=== PATIENT | male | born 1960 | race African-American/Black ===

== ENCOUNTER 2019-01-01 11:45 | Emergency (ER) | payer MEDICAID ==
[~2019-01-01] VITALS: Ht 172.7 cm; Wt 59.0 kg
[2019-01-01] MEDS ORDERED: KETOROLAC 60MG/2ML VIAL IM ONE (13:00)
[2019-01-01] MEDS ORDERED: TRAMADOL 50MG TABLET PO ONE (13:00)
[2019-01-01 14:05] VITALS: BP 109/82
== END 2019-01-01 14:21 | disposition home or self-care (01) ==
LOC: ER 12:35
DX: M25.511 Pain in right shoulder (principal)
CPT/HCPCS: 73030; 96372; 99283; J1885

== ENCOUNTER 2019-04-05 23:00 | Emergency (ER) | payer MEDICAID, MEDICARE ==
[~2019-04-05] VITALS: Ht 175.3 cm; Wt 82.0 kg
[2019-04-05 23:13] VITALS: BP 160/95
== END 2019-04-06 00:45 | disposition left against medical advice (07) ==
LOC: ER 23:00
DX: Z53.21 Procedure and treatment not carried out due to patient leaving prior to being seen by health care provider (principal); R51 Headache
CPT/HCPCS: 93005

== ENCOUNTER 2019-05-30 12:20 | Emergency (ER) | payer MEDICARE ==
[~2019-05-30] VITALS: Ht 175.3 cm; Wt 86.0 kg
[2019-05-30] MEDS ORDERED: SODIUM CHLORIDE 0.9% 1,000 ML IV ONE (15:20)
[2019-05-30] MEDS ORDERED: METHYLPREDNISOLONE SOD SUCC 125 MG/2 ML VIAL IV ONE (15:30)
[2019-05-30 16:00] VITALS: BP 101/74
[2019-05-30] MEDS ORDERED: PREDNISONE 20MG TABLET PO ONE (16:00)
== END 2019-05-30 16:32 | disposition home or self-care (01) ==
LOC: ER 12:20
DX: T78.3XXA Angioneurotic edema, initial encounter (principal); T46.4X5A Adverse effect of angiotensin-converting-enzyme inhibitors, initial encounter; Y92.098 Other place in other non-institutional residence as the place of occurrence of the external cause; I10 Essential (primary) hypertension
CPT/HCPCS: 99283; J2930; J7030; J7512

== ENCOUNTER 2020-01-23 10:43 | Emergency (ER) | payer MEDICARE | END 2020-01-23 13:40 | disposition left against medical advice (07) | LOC: ER 10:43 | DX: Z53.21 Procedure and treatment not carried out due to patient leaving prior to being seen by health care provider (principal) ==

== ENCOUNTER 2022-01-31 19:36 | Emergency (ER) | payer MEDICARE ==
[~2022-01-31] VITALS: Ht 180.3 cm; Wt 79.0 kg
[2022-01-31] MEDS ORDERED: PROCHLORPERAZINE 10MG/2ML VIAL IV PRN (22:00)
[2022-01-31] MEDS ORDERED: DIPHENHYDRAMINE 50MG/ML VIAL IV ONE (22:00)
[2022-01-31] MEDS ORDERED: SODIUM CHLORIDE 0.9% 1,000 ML IV ONE (22:00)
[2022-01-31 22:57] LABS: EOSINOPHILS % 1.3 % (0.0-5.0); HEMATOCRIT. 36.9 % (42.0-52.0); HEMOGLOBIN. 12.4 g/dL (14.0-18.0); LYMPHOCYTES % 26.6 % (20.0-50.0); MEAN CORPUSCULAR HEMOGLOBIN 29.2 pg (28.0-32.0); MEAN CORPUSCULAR VOLUME 86.9 fL (80.0-94.0); MEAN PLATELET VOLUME 7.2 fl (7.4-10.4); MONOCYTES % 10.3 % (2.0-8.0); NEUTROPHILS % 60.8 % (40.0-76.0); PLATELET 293 x1000/uL (130-400); RED BLOOD CELL COUNT 4.25 mill/uL (4.7-6.1); RED CELL DISTRIBUTION WIDTH 13.7 % (11.6-14.6)
[2022-01-31] MEDS ORDERED: PROCHLORPERAZINE 10MG/2ML VIAL IV NR (23:00)
[2022-01-31 23:04] LABS: CHLORIDE 105 mEq/L (98-107)
[2022-02-01] MEDS ORDERED: IBUP-2029 MT (00:24)
[2022-02-01] MEDS ORDERED: IOHEXOL-350 100 ML BOTTLE ONE (01:29)
[2022-02-01 04:48] VITALS: BP 151/80
== END 2022-02-01 02:56 | disposition home or self-care (01) ==
LOC: ER 19:36
DX: R51.9 Headache, unspecified (principal); I10 Essential (primary) hypertension; E11.9 Type 2 diabetes mellitus without complications
CPT/HCPCS: 36415; 70496; 80053; 85025; 85651; 96361; 96374; 96375; 99285; J0780; J1200; J7030; Q9967

== ENCOUNTER 2025-08-23 15:16 | Emergency (ER) | payer BC, MEDICAID ==
[~2025-08-23] VITALS: Ht 172.7 cm; Wt 68.0 kg
[~2025-08-23 15:16] MED LIST: ASPI-1497 MT; FAMO20TA8 PO; IBUP-1455 MT; INSU100I28 SQ
[2025-08-23 15:24] VITALS: TEMP 36.4; O2SAT 100
[2025-08-23] MEDS: TETANUS, DIPHTHERIA, PERTUSSIS VAC/PF 0.5ML (>10YR OLD) IM ONE (16:00)
[2025-08-23] MEDS: BACITRACIN ZINC OINT UDPKT TOP ONE (21:43)
[2025-08-23] MEDS: METFORMIN HCL 500MG TABLET PO ONE (21:44)
[2025-08-23] MEDS: KETOROLAC 30MG/ML VIAL IM ONE (21:44)
[2025-08-23] MEDS ORDERED: METF-414 MT (22:11)
[2025-08-23] MEDS ORDERED: ACET-2708 MT (22:11)
[2025-08-23] MEDS ORDERED: BO1 TP (22:12)
[2025-08-23 23:25] VITALS: BP 134/89; PULSE 78; RESP 16; O2SAT 98
[2025-08-24] MEDS ORDERED: METF-907 MT (01:58)
== END 2025-08-23 23:26 | disposition home or self-care (01) ==
LOC: ER 15:16
DX: S09.8XXA Other specified injuries of head, initial encounter (principal); M54.2 Cervicalgia; M48.02 Spinal stenosis, cervical region; M48.04 Spinal stenosis, thoracic region; I67.82 Cerebral ischemia; Z04.3 Encounter for examination and observation following other accident; Z79.82 Long term (current) use of aspirin; Z79.899 Other long term (current) drug therapy; W18.30XA Fall on same level, unspecified, initial encounter; Y93.89 Activity, other specified; Y92.89 Other specified places as the place of occurrence of the external cause; Y99.8 Other external cause status
CPT/HCPCS: 99285; 70450; 82962; 72125; 90715; 90471; 96372; J1885

== ENCOUNTER 2025-08-24 00:31 | Emergency (ER) | payer BC, MEDICAID ==
[~2025-08-24] VITALS: Ht 175.3 cm; Wt 77.2 kg
[~2025-08-24 00:31] MED LIST changes: +ACET-2708 MT; +BO1 TP; +METF-414 MT
[2025-08-24 00:42] VITALS: O2SAT 98
[2025-08-24 01:21] VITALS: BP 167/85; PULSE 74; RESP 18; TEMP 36.8; O2SAT 99
[2025-08-24] MEDS ORDERED: METF-907 MT (01:58)
== END 2025-08-24 02:45 | disposition home or self-care (01) ==
LOC: ER 00:31
DX: Z76.0 Encounter for issue of repeat prescription (principal); F10.90 Alcohol use, unspecified, uncomplicated; Z79.82 Long term (current) use of aspirin; Z79.84 Long term (current) use of oral hypoglycemic drugs; Y90.9 Presence of alcohol in blood, level not specified
CPT/HCPCS: 82962; 99282

== ENCOUNTER 2025-08-24 03:05 | Emergency (ER) | payer BC, MEDICAID ==
[~2025-08-24] VITALS: Ht 172.7 cm; Wt 74.0 kg
[~2025-08-24 03:05] MED LIST changes: +METF-907 MT
[2025-08-24 03:11] VITALS: O2SAT 97
[2025-08-24 03:46] VITALS: BP 184/85; PULSE 77; RESP 18; TEMP 37; O2SAT 98
== END 2025-08-24 04:37 | disposition home or self-care (01) ==
LOC: ER 03:05
DX: I10 Essential (primary) hypertension (principal); F10.90 Alcohol use, unspecified, uncomplicated; Z00.00 Encounter for general adult medical examination without abnormal findings; Z79.82 Long term (current) use of aspirin; Z79.84 Long term (current) use of oral hypoglycemic drugs; Y90.9 Presence of alcohol in blood, level not specified
CPT/HCPCS: 99282